=== PATIENT | male | born 1965 | race Hispanic/Latino ===

== ENCOUNTER 2017-04-16 05:45 | Observation (INO) | payer SELFPAY ==
[~2017-04-16] VITALS: Ht 172.7 cm; Wt 98.0 kg
[~2017-04-16 05:45] MED LIST: BACTRIM DS1 TAB PO; CIPROFLOXACN500 MG PO; MEDDOSEPAK PO; TESSALON200 MG PO
[2017-04-16] MEDS ORDERED: LIPITOR20 MG PO (06:04)
[2017-04-16 06:17] LABS: HEMATOCRIT 45.1 % (39.0-50.0); HEMOGLOBIN 14.2 g/dl (14.0-18.0); IMMATURE GRANULOCYTES 0.5 % (0.0-1.0); MEAN CELL VOLUME 87.4 fL CALC (80.0-100.0); MEAN CORPUSCULAR HGB 27.5 pG CALC (26.0-32.0); MEAN CORPUSCULAR HGB CONC 31.5 g/L CALC (32.0-36.0); NEUT# 3.33 thou/uL (1.82-7.42); RED BLOOD COUNT 5.16 mill/uL (4.70-6.10); RED CELL DISTRI WIDTH 13.8 % (11.5-15.5)
[2017-04-16 06:26] LABS: ALBUMIN 4.2 g/dL (3.2-5.0); ALKALINE PHOSPHATASE 55 u/l (38-126); ANION GAP 14 (6-22 (CALC)); BILIRUBIN, TOTAL 0.4 mg/dL (0.0-1.4); BUN 17 mg/dL (9-20); BUN/CREATININE RATIO 16 (12-20 (CALC)); CALCIUM 9.1 mg/dL (8.4-10.2); CARBON DIOXIDE 27 mmol/l (22-30); CHLORIDE 105 mmol/l (95-108); CREATININE 1.1 mg/dL (0.7-1.3); GFR > 60 ML/MIN (>=60 (CALC)); GFR FOR AFR.AMER. > 60 ML/MIN (>=60 (CALC)); GLUCOSE 109 mg/dL (75-110); POTASSIUM 3.8 mmol/l (3.5-5.1); SGOT/AST 34 u/l (17-59); SGPT/ALT 62 u/l (21-72); SODIUM 143 mmol/l (137-146); TOTAL PROTEIN 7.4 g/dL (6.3-8.2)
[2017-04-16 06:29] LABS: ACT PARTIAL THROMBO TIME 25.4 SECONDS (20.0-32.5); PROTHROMBIN TIME 10.7 SECONDS (9.0-12.5)
[2017-04-16 06:38] LABS: MYOGLOBIN 47 ng/mL (0 - 121)
[2017-04-16 06:40] LABS: URINE BILIRUBIN - DIPSTICK NEGATIVE (NEGATIVE); URINE BLOOD DIPSTICK NEGATIVE (NEGATIVE); URINE CLARITY CLEAR; URINE COLOR YELLOW; URINE GLUCOSE - DIPSTICK NEGATIVE (NEGATIVE); URINE KETONE NEGATIVE (NEGATIVE); URINE LEUK ESTERASE NEGATIVE (NEGATIVE); URINE NITRITE - DIPSTICK NEGATIVE (Negative); URINE PROTEIN - DIPSTICK NEGATIVE (NEG-TRACE); URINE SPECIFIC GRAVITY 1.025; URINE UROBILINOGEN - DIPSTICK 0.2 E.U./dL (0.2)
[2017-04-16 06:45] LABS: COCAINE POSITIVE (NEGATIVE); METHADONE NEGATIVE (NEGATIVE); TETRAHYDROCANNABIONOL NEGATIVE (NEGATIVE)
[2017-04-16 06:46] LABS: BARBITURATES NEGATIVE (NEGATIVE); OXCYCODONE NEGATIVE (NEGATIVE); TRICYLIC ANTIDEPRESSANTS NEGATIVE (NEGATIVE)
[2017-04-16 08:35] VITALS: BP 118/60
[2017-04-16 12:41] VITALS: BP 139/78
[2017-04-16 16:18] VITALS: BP 145/70
== END 2017-04-16 17:39 | disposition home or self-care (01) | DRG 313 ==
LOC: ED 05:45 → ED-I 07:13 → ED 07:43 → MS2 07:44
PROVIDERS: Emergency Medicine; ADMIT Internal Medicine; ATTEND Internal Medicine
DX: R07.9 Chest pain, unspecified (principal); E78.5 Hyperlipidemia, unspecified; F14.90 Cocaine use, unspecified, uncomplicated; Z82.49 Family history of ischemic heart disease and other diseases of the circulatory system
CPT/HCPCS: G0378

== ENCOUNTER 2018-01-18 16:54 | Emergency (ER) | payer OTHER ==
[~2018-01-18] VITALS: Ht 172.7 cm; Wt 100.0 kg
[~2018-01-18 16:54] MED LIST changes: +LIPITOR20 MG PO
[2018-01-18] MEDS ORDERED: ERYTHROMYCIN O3.5 GM OU (17:54)
[2018-01-18] MEDS ORDERED: ACULAR LS0.4 % OU (17:54)
[2018-01-18 18:10] VITALS: BP 131/84
== END 2018-01-18 18:10 | disposition home or self-care (01) | DRG 125 ==
LOC: ED 16:54
DX: H10.9 Unspecified conjunctivitis (principal); T15.91XA Foreign body on external eye, part unspecified, right eye, initial encounter; T15.92XA Foreign body on external eye, part unspecified, left eye, initial encounter; X58.XXXA Exposure to other specified factors, initial encounter

== ENCOUNTER 2018-07-01 14:17 | Observation (INO) | payer OTHER ==
[~2018-07-01] VITALS: Ht 172.7 cm; Wt 101.2 kg
[~2018-07-01 14:17] MED LIST changes: +ACULAR LS0.4 % OU; +ERYTHROMYCIN O3.5 GM OU
--- NOTE | 2018-07-01 14:18 | NUR ---
PT TO ROOM VIA WHEELCHAIR FOR BEDSIDE TRIAGE, MD NOTIFIED OF PT STATUS.
--- NOTE | 2018-07-01 14:28 | NUR ---
PT STATES HIS CHEST PAIN HAS RESOLVED SINCE LYING DOWN IN ED. REPORTS INTERMITTENT LT CHEST PAIN AND SUBSEQUENT SOB OFF AND ON X1 MONTH. REPORTS MOTHER HAD FL AT EARLY AGE.
[2018-07-01 14:52] LABS: HEMATOCRIT 45.6 % (39.0-50.0); HEMOGLOBIN 14.7 g/dl (14.0-18.0); IMMATURE GRANULOCYTES 0.4 % (0.0-5.0); MEAN CELL VOLUME 85.7 fL CALC (80.0-100.0); MEAN CORPUSCULAR HGB 27.6 pG CALC (26.0-32.0); MEAN CORPUSCULAR HGB CONC 32.2 g/L CALC (32.0-36.0); RED BLOOD COUNT 5.32 mill/uL (4.70-6.10); RED CELL DISTRI WIDTH 13.7 % (11.5-15.5)
--- NOTE | 2018-07-01 15:01 | NUR ---
PT PAIN FREE AT THIS TIME. VSS. PT UPDATED ON POC BY DR LAKE
[2018-07-01 15:06] LABS: ANION GAP 13 (6-22 (CALC)); BUN 20 mg/dL (9-20); BUN/CREATININE RATIO 20 (12-20 (CALC)); CARBON DIOXIDE 29 mmol/l (22-30); CHLORIDE 105 mmol/l (95-108); GFR > 60 ML/MIN (>=60 (CALC)); GFR FOR AFR.AMER. > 60 ML/MIN (>=60 (CALC)); POTASSIUM 4.2 mmol/l (3.5-5.1); SODIUM 142 mmol/l (137-146)
--- NOTE | 2018-07-01 16:12 | NUR ---
PT RESTING IN NO ACUTE DISTRESS. VSS. AWAITING ROOM PLACEMENT ON MS. AGREEABLE TO POC
[2018-07-01 17:03] LABS: CHOLESTEROL HDL RATIO 2.8 (<4.4 (CALC))
--- NOTE | 2018-07-01 17:10 | NUR ---
TRANSPORTED TO [facility] VIA ON TELE MONITOR IN STABLE CONDITION
--- NOTE | 2018-07-01 17:25 | NUR ---
PT ARRIVED TO [facility] RM 278 AT 1725 VIA WHEELCHAIR, PT AMBULATED WELL TO BED, NO SIGNS OF DISTRESS NOTED, RESP EVEN AND UNLABORED. VOICES NO NEEDS OR COMPLAINTS OF PAIN. DISCUSSED POC, ORIENTED PT TO ROOM AND CALL LIGHT. PT DID NOT WANT TO REMOVE SLACKS AND SHOES AT THIS TIME. STATES SOMEONE TO BRING CLOTHES FROM HOME AND PT WILL DECIDE THEN IF HE WANTS TO WEAR [employer] STOCKINGS. TEDS LEFT ON BEDSIDE TABLE. ADMISSION ASSESSMENT COMPLETED AT THIS TIME. DINNER TRAY PROVIDED. CALL LIGHT IN REACH,CONTINUE TO MONITOR.
[2018-07-01 17:29] VITALS: BP 124/75
[2018-07-01] MEDS ORDERED: LIPITOR20 M1 PO (17:35)
--- NOTE | 2018-07-01 19:30 | NUR ---
PATIENT RESTING IN BED SITTING UP WITH SEVERAL VISITOR IN THE ROOM. PATIENT IS ALERT AND ORIENTEDX3 WITH NO COMPLAINTS AT THIS TIME. TELE MONITOR IN PLACE. SALINE LOCK TO RAC INTACT AND APPEARS HEALTHY AT THIS TIME. SAFETY PRECAUTIONS REINFORCED.CALL LIGHT IN REACH. WILL CONT TO MONITOR.
[2018-07-01 20:00] VITALS: BP 125/78
--- NOTE | 2018-07-02 | NUR ---
APPEARS SLEEPING AT THIS TIME WITH EYES CLOSED. O2 VIA NASAL CANNULA IN PLACE AT 2LPM. RESP ARE EVEN AND UNLABORED. CALL LIGHT IN REACH. WILL CONT TO MONITOR.
--- NOTE | 2018-07-02 | NUR ---
APPEARS SLEEPING AT THIS TIME WITH EYES CLOSED AND RESP EVEN AND UNLABORED. TELE MONITOR IN PLACE. CALL LIGHT IN REACH. WILL CONT TO MONITOR.
[2018-07-02 00:13] VITALS: BP 107/44
[2018-07-02 04:00] VITALS: BP 114/67
--- NOTE | 2018-07-02 05:14 | NUR ---
PATIENT WITH NO COMPLAINTS THROUGHOUT THE NIGHT., TELE MONITOR REMAINS IN PLACE-[id number]. SALINE LOCK INTACT TO RIGHT AC. CALL LIGHT IN REACH. WILL CONT TO MONITOR.
--- NOTE | 2018-07-02 08:35 | NUR ---
SHIFT CHANGE REPORT FROM YAMILKA BECERRA AWAKE ALERT AND ORIENTED, NO C/O DISCOMFORT, TELE MONITOR IN PLACE, CALL [place]WE[place] IN REACH.
[2018-07-02 08:49] VITALS: BP 117/74
[2018-07-02] MEDS ORDERED: NAPROXEN500 MG PO (11:37)
[2018-07-02] MEDS ORDERED: FLEXERIL PO (11:37)
--- NOTE | 2018-07-02 12:12 | NUR ---
PT HAD ALREADY REMOVED TELE MONITOR AND IV CATHETER EVEN BEFORE MD WROTE D/C ORDERS, HE HAS ALSO BEEN DRESSED AND AWAITING ORDERS RIGHT AFTER MD INFORMED HIM HE WOULD BE GOING HOME.
--- NOTE | 2018-07-02 12:39 | NUR ---
Discharge instructions given. Patient verbalizes understanding of same. Discharged in good condition via Ambulatory to Home with family. All belongings sent with pt.
== END 2018-07-02 12:40 | disposition home or self-care (01) | DRG 313 ==
LOC: ED 14:17 → ED-I 15:35 → ED 15:50 → MS2 15:51
PROVIDERS: Family Medicine; Nurse Practitioner Family; ADMIT Internal Medicine; ATTEND Internal Medicine
DX: R07.9 Chest pain, unspecified (principal); M79.18 Myalgia, other site; E78.5 Hyperlipidemia, unspecified; Z82.49 Family history of ischemic heart disease and other diseases of the circulatory system
CPT/HCPCS: G0378

== ENCOUNTER 2022-05-04 03:22 | Inpatient (IN) | payer OTHER ==
[~2022-05-04] VITALS: Ht 172.7 cm; Wt 105.5 kg
[2022-05-04] VITALS (35 sets, daily range): BP systolic 79–136; BP diastolic 49–88
[~2022-05-04 03:22] MED LIST changes: +ASPIRIN81 MG PO; +CLOPIDOGREL75 MG PO; +FLEXERIL PO; +LIPITOR40 M1 PO; +NAPROXEN500 MG PO; +NITROGLYCER0.2 MG/H1 TD; +TOPROL XL25 M1 PO; +ZESTRIL10 MG PO
[2022-05-04 03:55] LABS: HEMATOCRIT 44.5 % (39.0-50.0); HEMOGLOBIN 13.9 g/dl (14.0-18.0); IMMATURE GRANULOCYTES 0.3 % (0.0-5.0); MEAN CELL VOLUME 86.9 fL CALC (80.0-100.0); MEAN CORPUSCULAR HGB 27.1 pG CALC (26.0-32.0); MEAN CORPUSCULAR HGB CONC 31.2 g/dL CAL (32.0-36.0); NEUT# 3.33 thou/uL (1.82-7.42); RED BLOOD COUNT 5.12 mill/uL (4.70-6.10); RED CELL DISTRI WIDTH 13.8 % (11.5-15.5)
[2022-05-04] MEDS ORDERED: FUROSEMIDE20 MG PO (03:58)
[2022-05-04 04:03] LABS: ALBUMIN 4.4 g/dL (3.2-5.0); ALKALINE PHOSPHATASE 58 u/l (38-126); ANION GAP 14 (6-22 (CALC)); BILIRUBIN, TOTAL 0.4 mg/dL (0.0-1.4); BUN 22 mg/dL (9-20); BUN/CREATININE RATIO 17 (12-20 (CALC)); CARBON DIOXIDE 27 mmol/l (22-30); CHLORIDE 106 mmol/l (95-108); CREATININE 1.3 mg/dL (0.7-1.3); GFR FOR AFR.AMER. > 60 ML/MIN (>=60 (CALC)); GFR OTHER RACES 57 ML/MIN (>=60 (CALC)); POTASSIUM 3.9 mmol/l (3.5-5.1); SGOT/AST 28 u/l (17-59); SODIUM 143 mmol/l (137-146); TOTAL PROTEIN 7.6 g/dL (6.3-8.2)
[2022-05-04 04:07] LABS: URINE BILIRUBIN - DIPSTICK NEGATIVE (NEGATIVE); URINE BLOOD DIPSTICK NEGATIVE (NEGATIVE); URINE COLOR YELLOW; URINE GLUCOSE - DIPSTICK NEGATIVE (NEGATIVE); URINE KETONE NEGATIVE (NEGATIVE); URINE LEUK ESTERASE NEGATIVE (NEGATIVE); URINE NITRITE - DIPSTICK NEGATIVE (Negative); URINE PROTEIN - DIPSTICK NEGATIVE (NEG-TRACE); URINE SPECIFIC GRAVITY >=1.030; URINE UROBILINOGEN - DIPSTICK 0.2 E.U./dL (0.2)
[2022-05-04 04:14] LABS: MYOGLOBIN 50 ng/mL (0 - 121)
[2022-05-04 04:46] LABS: ACT PARTIAL THROMBO TIME 24.2 SECONDS (20.0-32.5); INTERNATIONAL NORMALIZED RATIO 1.1 RATIO (0.7-1.3); PROTHROMBIN TIME 10.8 SECONDS (9.0-12.5)
[2022-05-04] MEDS ORDERED: MUPIROCIN2 % EX (10:17)
[2022-05-04] MEDS ORDERED: PROAIR DIG108 MCG/AC IN (10:17)
[2022-05-04] MEDS ORDERED: NITROGLYCERIN0.4 MG PO (10:19)
[2022-05-04] MEDS ORDERED: TYLENOL500 MG PO (10:21)
[2022-05-04] MEDS ORDERED: BACTRIM DS1 TAB PO (10:37)
[2022-05-04 12:06] LABS: INTERNATIONAL NORMALIZED RATIO 1.2 RATIO (0.7-1.3); PROTHROMBIN TIME 11.7 SECONDS (9.0-12.5)
[2022-05-04] MEDS ORDERED: LASIX20 MG PO (12:40)
[2022-05-05] VITALS (10 sets, daily range): BP systolic 76–104; BP diastolic 37–54
== END 2022-05-05 03:00 | DRG 282 ==
LOC: ED 03:22 → ED-I 04:40 → ED 04:56 → MS2 04:57 → ICU 12:05
PROVIDERS: Emergency Medicine; Nurse Practitioner; ADMIT Internal Medicine; ATTEND Internal Medicine
DX: I21.4 Non-ST elevation (NSTEMI) myocardial infarction (principal); I10 Essential (primary) hypertension; I25.10 Atherosclerotic heart disease of native coronary artery without angina pectoris; E78.5 Hyperlipidemia, unspecified; I25.2 Old myocardial infarction; Z95.5 Presence of coronary angioplasty implant and graft; Z20.822 Contact with and (suspected) exposure to COVID-19
CPT/HCPCS: J1644

== ENCOUNTER 2023-03-04 20:30 | Emergency (ER) | payer OTHER ==
[~2023-03-04] VITALS: Ht 172.7 cm; Wt 65.0 kg
[~2023-03-04 20:30] MED LIST changes: +FUROSEMIDE20 MG PO; +LASIX20 MG PO; +MUPIROCIN2 % EX; +NITROGLYCERIN0.4 MG PO; +PROAIR DIG108 MCG/AC IN; +TYLENOL500 MG PO
[2023-03-04 21:14] VITALS: BP 110/43
== END 2023-03-04 21:18 | disposition home or self-care (01) | DRG 301 ==
LOC: ED 20:30
DX: I83.891 Varicose veins of right lower extremity with other complications (principal); E78.00 Pure hypercholesterolemia, unspecified; I25.2 Old myocardial infarction; Z95.5 Presence of coronary angioplasty implant and graft

== ENCOUNTER 2023-04-25 06:54 | Day surgery (SDC) | payer OTHER ==
[~2023-04-25] VITALS: Ht 172.7 cm; Wt 102.5 kg
[~2023-04-25 06:54] MED LIST changes: +LISINOPRIL10 MG PO
[2023-04-25 09:39] VITALS: BP 114/75
== END 2023-04-25 09:05 | disposition home or self-care (01) | DRG 951 ==
LOC: ENDO 06:54 → ORM 08:00 → ENDO 09:05 → ORM 10:15
PROVIDERS: ATTEND Surgery
PROC: 0DJD8ZZ Inspection of Lower Intestinal Tract, Via Natural or Artificial Opening Endoscopic (ICD-10-PCS; principal; 2023-04-25)
DX: Z12.11 Encounter for screening for malignant neoplasm of colon (principal); K57.30 Diverticulosis of large intestine without perforation or abscess without bleeding; K64.8 Other hemorrhoids; I10 Essential (primary) hypertension; Z80.0 Family history of malignant neoplasm of digestive organs